=== PATIENT | male | born 1945 | race Caucasian/White ===

== ENCOUNTER → 2017-01-12 | Outpatient (CLI) | payer MEDICARE, OTHER ==
[~2017-01-12] MED LIST: ALLO100T PO; ASPI-1085 PO; DEXT37.56 PO; DEXT50DI5 IV; DIAZ2TAB PO; DOCU-168 PO; DOXA2TAB2 PO; ENAL5TAB PO; ENOX40DI SQ; ESCI10TA47 PO; FELO10TA31 PO; FENT50VI IV; HYDR25TA PO; LEVO200T8 PO; LEVO25TA4 PO; OMEP20TA24 PO; ONDA4VIA23 IV; VANC1.5P IV
--- NOTE | 2017-01-12 16:15 | DI ---
Indication: ITS.REASON: S46.012A ROTATOR CUFF STRAIN, LEFT; M25.512 PAIN IN LT SHOULDER Procedure: SHOULDER LEFT 2-3 VIEWS: Encounter: Initial Comparison: None Technique: Three views of the left shoulder were obtained Findings: Mild osteopenia. The visualized osseous structures appear intact with no acute fracture identified. 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 No focal radiographically apparent soft tissue swelling. No radiopaque foreign body. The visualized left lung is clear. 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 .
== END ==
LOC: IMA 15:32
PROVIDERS: ATTEND Internal Medicine
DX: M19.012 Primary osteoarthritis, left shoulder (principal); M25.512 Pain in left shoulder

== ENCOUNTER → 2017-01-28 | Outpatient (CLI) | payer MEDICARE, OTHER ==
[~2017-01-28] MED LIST changes: +IOHEXOL 300 MG/ML 100ml INJECTION ONE; +NORMAL SALINE 100 ML ONE; +SALINE FLUSH 10ml SYRINGE ONE
--- NOTE | 2017-01-28 14:14 | DI ---
Indication: ITS.REASON: R31.9 HEMATURIA PROCEDURE: CT RENAL W/WO CONTRAST: Encounter: Initial Comparison: Renal CT dated February 28, [address] chest, abdomen and pelvis dated October 13, 2015 Technique: Axial CT images were performed through the abdomen and pelvis before and after the administration of intravenous contrast. Delayed postcontrast images were also performed. Coronal and sagittal 2-dimensional reformats. Automated Exposure Control and Iterative Reconstruction dose reducing techniques were utilized. Contrast: Omnipaque 300 100 mL Findings: Mild atelectasis in both lung bases. Stable benign lower lobe pulmonary nodules. Noncontrast imaging shows a new 6 mm stone in the interpolar left kidney. There are also two 1 to 2 mm stones in the lower pole on the left. No left ureteral stone. Right kidney shows a small 2 mm lower pole stone. No right ureteral stones. Overall stone burden is similar to the comparison. Postcontrast imaging shows a new small low-attenuation focus in the posterior right lobe of the liver on axial image #27 measuring 1 cm in size. This is too small to definitively characterize. Spleen is mildly enlarged at 15 cm anteroposterior dimension. The pancreas and adrenal glands are normal. No enhancing renal masses. No abdominal or pelvic lymphadenopathy. Bladder shows no evidence of enhancing mass or wall thickening. Prostate and rectum are normal for age. No free fluid. Mild sigmoid diverticulosis without acute diverticulitis. No bowel obstruction. Bone windows show mild degenerative changes in the spine along with prior lumbar surgery. Delayed postcontrast images show symmetric excretion of contrast by both renal collecting systems. No filling defects or masses appreciated. The ureters are normal in course and caliber where visible. The partially opacified urinary bladder shows no filling defect. Changes of right inguinal hernia repair. There is atypical outpouching of the bladder towards the area of right inguinal hernia repair. This appearance is stable dating back to at least 2013. Impression: Small bilateral renal stones. No obstructing renal or ureteral stone. .
== END ==
LOC: IMA 12:26
PROVIDERS: ATTEND Specialist
DX: N20.0 Calculus of kidney (principal); R31.9 Hematuria, unspecified
CPT/HCPCS: 74178; J7050; Q9967